=== PATIENT | female | born 2000 | race African-American/Black ===

== ENCOUNTER 2019-06-19 10:08 | Emergency (ER) | payer SELFPAY ==
[2019-06-19 10:47] LABS: ABSOLUTE BASOPHILS # (AUTO) 0.1 10^3/uL (0.0-0.2); ABSOLUTE EOSINOPHILS # (AUTO) 0.1 10^3/uL (0.0-0.6); ABSOLUTE MONOCYTES (AUTO) 0.3 10^3/uL (0.1-1.4); ABSOLUTE NEUT (AUTO) 5.3 10^3/uL (1.7-8.2); BASOPHILS % (AUTO) 0.9 % (0-2); EOSINOPHILS % (AUTO) 1.3 % (0-6); HEMOGLOBIN 11.1 g/dL (12.0-15.5); LYMPHOCYTES % (AUTO) 25.8 % (13-45); MEAN CORPUSCULAR HEMOGLOBIN 24.9 pg (27.0-33.4); MEAN CORPUSCULAR HGB CONC 32.5 g/dL (32.0-36.0); MEAN CORPUSCULAR VOLUME 77 fl (80-97); MONOCYTES % (AUTO) 4.2 % (3-13); RED BLOOD COUNT 4.43 10^6/uL (3.72-5.28); RED CELL DISTRIBUTION WIDTH 16.8 % (11.5-14.0); SEGMENTED NEUTROPHILS % (AUTO) 67.8 % (42-78); TOTAL CELLS COUNTED % (AUTO) 100 %; WHITE BLOOD COUNT 7.8 10^3/uL (4.0-10.5)
[2019-06-19] MEDS ORDERED: DIPHENHYDRAMINE HCL 25 MG CAPSULE PO ONE (10:53)
[2019-06-19] MEDS ORDERED: FAMOTIDINE 20 MG TABLET PO ONE (10:53)
--- NOTE | 2019-06-19 10:57 | ER Document Report ---
ED Allergic Reaction - General Chief Complaint: Allergic Reaction Stated Complaint: DIFFICULTY BREATHING Time Seen by Provider: 06/19/19 10:47 Mode of Arrival: Ambulatory Information source: Patient Notes: This 19-year-old female patient comes emergency room complaining of allergic reaction this morning. She said her throat was feeling tight, the roof of her mouth was itchy, her right face and right upper lip were swelling and itching. She took one Benadryl tablet about 9:30 AM. She is feeling better now but still has some of the symptoms. She does have a history of asthma and was concerned about her chest tightness. She has never had a reaction like this in the past. She is allergic to seafood and has seasonal allergies. TRAVEL OUTSIDE OF THE [place] IN LAST 30 DAYS: No - Related Data Allergies/Adverse Reactions: Seafood Allergy (Severe, Uncoded 06/19/19 10:50) Past Medical History - General Information source: Patient - Social History Smoking Status: Never Smoker Cigarette use (# per day): No Chew tobacco use (# tins/day): No Smoking Education Provided: No Frequency of alcohol use: None Drug Abuse: Marijuana - Occasionally Occupation: Works in the office of a [employer] Lives with: Family Family History: Reviewed & Not Pertinent Patient has suicidal ideation: No Patient has homicidal ideation: No Pulmonary Medical History: Reports: Hx Asthma Past Surgical History: Reports: None Review of Systems - Review of Systems Constitutional: No symptoms reported EENT: No symptoms reported Cardiovascular: No symptoms reported Respiratory: No symptoms reported Gastrointestinal: No symptoms reported Genitourinary: No symptoms reported Female Genitourinary: Last menstrual period - 05/27/2019, normal and on time Musculoskeletal: No symptoms reported Skin: No symptoms reported Hematologic/Lymphatic: No symptoms reported Neurological/Psychological: No symptoms reported Physical Exam - Vital signs Vitals: Temp Pulse Resp BP Pulse Ox 98 F 98 22 H 120/86 H 99 06/19/19 10:10 06/19/19 10:10 06/19/19 10:10 06/19/19 10:10 06/19/19 10:10 Interpretation: Normal - General General appearance: Appears well, Alert In distress: None - HEENT Head: Normocephalic, Atraumatic, Other - The right zygomatic region has a well demarcated slightly pale raised area that corresponds to where the patient resupported the swelling and itching earlier. Eyes: Normal Pupils: PERRL Mouth/Lips: Other - The right upper lip is a little bit swollen. Pharynx: Normal. No: Uvular edema Neck: Normal - Respiratory Respiratory status: No respiratory distress Breath sounds: Normal - Cardiovascular Rhythm: Regular Heart sounds: Normal auscultation Murmur: No - Abdominal Inspection: Morbidly Obese - Back Back: Normal - Extremities General upper extremity: Normal inspection General lower extremity: Normal inspection - Neurological Neuro grossly intact: Yes - Psychological Associated symptoms: Normal affect, Normal mood - Skin Skin Temperature: Warm Skin Moisture: Dry Skin Color: Normal Course - Re-evaluation Re-evalutation: 06/19/19 13:00 Patient is feeling better now. There is minimal swelling to the right upper lip. There is no itching. - Vital Signs Vital signs: Temp Pulse Resp BP Pulse Ox 98 F 98 11 L 127/77 H 100 06/19/19 10:10 06/19/19 10:10 06/19/19 11:03 06/19/19 11:03 06/19/19 11:03 - Laboratory Result Diagrams: 06/19/19 10:22 06/19/19 10:22 Laboratory results interpreted by me: 06/19/19 10:22 Hgb 11.1 L Hct 34.0 L MCV 77 L MCH 24.9 L RDW 16.8 H Plt Count 489 H Discharge - Discharge Clinical Impression: Urticaria Condition: Stable Disposition: HOME, SELF-CARE Additional Instructions: Acute Allergic Reaction Your symptoms are due to an allergic reaction. Allergy can cause hives, swelling of the hands, feet, and face, hoarseness, and difficulty swallowing or breathing. It may be due to exposure to medication, animal dander, foods, infection, or insect bites. Medication is a common cause, even when prior use of this same medication caused no problems. Acute treatment may include adrenalin and antihistamines. Usually, the specific allergic agent can't be identified unless repeated episodes occur. Home treatment includes the following: (1) Stop any suspicious medications. This will be discussed with you. (2) Oral antihistamines for the next four to five days. Example, dip henhydramine (Benadryl) every four hours. (3) You may also use cimetidine (Tagamet), ranitidine (Zantac), or famotidine (Pepcid) every four hours if diphenhydramine is not controlling itching and hiv es. (4) Avoid aspirin until the hives completely disappear. (5) Avoid hot bahs or showers until the hives are completely gone. Call the doctor if faintness, difficulty swallowing, tightness in the chest, or wheezing occurs.
[2019-06-19 11:04] LABS: ALBUMIN 4.1 g/dL (3.5-5.0); ALKALINE PHOSPHATASE 72 U/L (38-126); ANION GAP 9 (5-19); ASPARTATE AMINO TRANSFERASE 17 U/L (14-36); BILIRUBIN,DIRECT 0.1 mg/dL (0.0-0.4); BILIRUBIN,TOTAL 0.4 mg/dL (0.2-1.3); BLOOD UREA NITROGEN 9 mg/dL (7-20); CALCIUM 9.5 mg/dL (8.4-10.2); CARBON DIOXIDE 25 mmol/L (22-30); CHLORIDE 104 mmol/L (98-107); GLUCOSE 86 mg/dL (75-110); POTASSIUM 4.6 mmol/L (3.6-5.0); TOTAL PROTEIN 7.8 g/dL (6.3-8.2)
[2019-06-19 11:14] LABS: PLATELET COUNT 489 10^3/uL (150-450)
[2019-06-19 13:02] VITALS: BP 142/95
== END 2019-06-19 13:00 | disposition home or self-care (01) ==
LOC: ER 10:08
DX: L50.9 Urticaria, unspecified (principal); R09.89 Other specified symptoms and signs involving the circulatory and respiratory systems; J45.909 Unspecified asthma, uncomplicated; R07.89 Other chest pain; F12.10 Cannabis abuse, uncomplicated; Z91.013 Allergy to seafood
CPT/HCPCS: 36415; 80053; 85025; 99283

== ENCOUNTER 2019-07-17 17:06 | Emergency (ER) | payer OTHER ==
--- NOTE | 2019-07-17 18:10 | ER Document Report ---
HPI - HPI Time Seen by Provider: 07/17/19 18:04 Pain Level: 0 Notes: Patient is a 19-year-old female who presents to the ED complaining of nasal congestion/discharge, dry nonproductive cough, sore throat 2 days. Patient states that she is still eating and drinking without difficulties, but does have a decreased p.o. intake. She is still urinating normally having normal bowel movements. Patient has been using some [id number] meds for symptoms. She denies any significant past medical history including cardiopulmonary history and immunocompromised conditions. Patient denies any smoking. Denies any headache, neck pain, chest pain, palpitations, syncope, shortness of breath, wheeze, dyspnea, abdominal pain, nausea/vomiting/diarrhea, urinary retention, dysuria, hematuria, or rash. - ROS Systems Reviewed and Negative: Yes All other systems reviewed and negative - REPRODUCTIVE Reproductive: DENIES: : Past Medical History - Social History Smoking Status: Never Smoker Family History: Reviewed & Not Pertinent Patient has suicidal ideation: No Patient has homicidal ideation: No Pulmonary Medical History: Reports: Hx Asthma Vertical Provider Document - CONSTITUTIONAL Agree With Documented VS: Yes Notes: PHYSICAL EXAMINATION: GENERAL: Well-appearing, well-nourished and in no acute distress. A&Ox4. Ans wers questions appropriately. Moves comfortably w/o notable distress HEAD: Atraumatic, normocephalic. EYES: Pupils equal round and reactive to light, extraocular movements intact, sclera anicteric, conjunctiva are normal. ENT: EAC clear b/l. TM's intact b/l without erythema, fluid, or perforation. Nares patent and with clear discharge. oropharynx mild erythema without exudates. 1+ tonsilar hypertrophy with mild erythema no exudate. No palatine shift. Uvula midline. No tongue protrusion. No drooling, hoarseness, or airway compromise. Moist mucous membranes. No sinus tenderness. NECK: Normal range of motion, supple without lymphadenopathy. No rigidity/meningismus. LUNGS: Breath sounds clear to auscultation bilaterally and equal. No wheezes rales or rhonchi. No retractions HEART: Regular rate and rhythm without murmurs, rubs, gallops. ABDOMEN: Soft, nontender, nondistended abdomen. No guarding, no rebound. Normal bowel sounds present. No CVA tenderness bilaterally. NEUROLOGICAL: Normal speech, normal gait. PSYCH: Normal mood, normal affect. SKIN: Warm, Dry, normal turgor, no rashes or lesions noted. - INFECTION CONTROL TRAVEL OUTSIDE OF THE [place] IN LAST 30 DAYS: No Course - Re-evaluation Re-evalutation: 07/17/19 Patient is an afebrile, well-hydrated, 19-year-old female who presents to the emergency department with an acute URI/pharyngitis, suspect viral. Vitals are acceptable without significant tachycardia, tachypnea, or hypoxia. PE is o therwise unremarkable. She is nontoxic-appearing and is tolerating p.o. without difficulty. Lungs are clear to auscultation bilaterally. Rapid strep was negative with a throat culture pending. No further labs or imaging warranted at this time. Low suspicion for any meningitis, sepsis, peritonsillar/pharyngeal abscess, respiratory compromise, Fer's, pneumonia, or other emergent systemic condition at this time. Patient is aware this condition can change from initial presentation and she needs to monitor symptoms closely. Pt declined decadron. Conservative measures otherwise for symptoms. Recheck with your PCM in 2-3 days. Return to the ED with any worsening/concerning symptoms otherwise as reviewed in discharge. Patient is in agreement. - Vital Signs Vital signs: Temp Pulse Resp BP Pulse Ox 97.4 F 93 14 130/74 H 100 07/17/19 17:25 07/17/19 17:25 07/17/19 17:25 07/17/19 17:25 07/17/19 17:25 Discharge - Discharge Clinical Impression: Acute URI, Sore throat Condition: Stable Disposition: HOME, SELF-CARE Instructions: Upper Respiratory Illness ([facility]), Sore Throat ([facility]) Additional Instructions: Maintain adequate fluid intake Take meds as directed Salt water gargles, throat sprays, mouthwash rinse, peroxide gargles tylenol/ibuprofen as needed over the counter cold medication as needed for symptoms F/u: with your PCM in 2-3 days for a recheck Consider consult with ENT for ongoing/worsening symptoms Return to the ED with any fever, worsening pain, chest pain, neck pain/stiffness, shortness of breath, cough, drooling, trouble swallowi ng/breathing, abdominal pain, n/v/d, rash, or worsening/concerning symptoms otherwise. Forms: Elevated Blood Pressure Referrals: ADAN PHOENIX DO [ASSOCIATE] - Follow up as needed
[2019-07-17 19:49] VITALS: BP 121/63
== END 2019-07-17 19:20 | disposition home or self-care (01) ==
LOC: ER 17:06
DX: J06.9 Acute upper respiratory infection, unspecified (principal); J02.9 Acute pharyngitis, unspecified; R09.81 Nasal congestion; R05 Cough; J45.909 Unspecified asthma, uncomplicated; J35.1 Hypertrophy of tonsils
CPT/HCPCS: 87070; 87880; 99283

== ENCOUNTER 2019-11-01 10:16 | Emergency (ER) | payer BC ==
[2019-11-01] MEDS ORDERED: ONDANSETRON HCL INJ/PF 4 MG/2 ML SDV IV ONE (10:28)
--- NOTE | 2019-11-01 10:29 | ER Document Report ---
ED Medical Screen (RME) - General Chief Complaint: Nausea/Vomiting/Diarrhea Stated Complaint: DIARRHEA Time Seen by Provider: 11/01/19 10:25 Notes: HPI: 19-year-old female presenting to the emergency department complaining of vomiting and diarrhea since yesterday. Patient had upper respiratory symptoms a week ago. Patient began having some generalized abdominal discomfort, multiple episodes of diarrhea yesterday and today, had 3-4 episodes of vomiting yesterday 2 episodes of vomiting today. No definitive fever. I have greeted and performed a rapid initial assessment of this patient. A comprehensive ED assessment and evaluation of the patient, analysis of test results and completion of the medical decision making process will be conducted by additional ED providers PHYSICAL EXAMINATION: GENERAL: Well-appearing, well-nourished and in mild acute distress. HEAD: Atraumatic, normocephalic. EYES: sclera anicteric, conjunctiva are normal. ENT: Moist mucous membranes. NECK: Normal range of motion LUNGS: Normal work of breathing, clear to auscultation HEART: 2+ radial pulses bilaterally, regular rate and rhythm ABD: limited by positioning for exam in triage. Mild generalized discomfort on palpation EXTREMITIES: no pitting or edema. No cyanosis. NEUROLOGICAL: No focal neurological deficits. Moves all extremities spontaneously and on command. PSYCH: Normal mood, normal affect. SKIN: Warm, Dry, normal turgor, no rashes or lesions noted. TRAVEL OUTSIDE OF THE [place] IN LAST 30 DAYS: No - Related Data Allergies/Adverse Reactions: Seafood Allergy (Severe, Uncoded 11/01/19 10:23) Past Medical History - Social History Chew tobacco use (# tins/day): No Frequency of alcohol use: None Drug Abuse: None Pulmonary Medical History: Reports: Hx Asthma Physical Exam - Vital signs Vitals: Temp Pulse Resp BP Pulse Ox 97.8 F 81 20 141/85 H 98 11/01/19 10:20 11/01/19 10:20 11/01/19 10:20 11/01/19 10:20 11/01/19 10:20 Course - Vital Signs Vital signs: Temp Pulse Resp BP Pulse Ox 97.8 F 81 20 141/85 H 98 11/01/19 10:20 11/01/19 10:20 11/01/19 10:20 11/01/19 10:20 11/01/19 10:20
[2019-11-01 11:06] LABS: ABSOLUTE EOSINOPHILS # (AUTO) 0.1 10^3/uL (0.0-0.6); ABSOLUTE LYMPHOCYTES (AUTO) 1.9 10^3/uL (0.5-4.7); ABSOLUTE MONOCYTES (AUTO) 0.3 10^3/uL (0.1-1.4); ABSOLUTE NEUT (AUTO) 4.7 10^3/uL (1.7-8.2); BASOPHILS % (AUTO) 0.3 % (0-2); EOSINOPHILS % (AUTO) 1.1 % (0-6); HEMOGLOBIN 11.4 g/dL (12.0-15.5); LYMPHOCYTES % (AUTO) 27.6 % (13-45); MEAN CORPUSCULAR HEMOGLOBIN 25.5 pg (27.0-33.4); MEAN CORPUSCULAR HGB CONC 33.5 g/dL (32.0-36.0); MEAN CORPUSCULAR VOLUME 76 fl (80-97); MONOCYTES % (AUTO) 4.8 % (3-13); PLATELET COUNT 494 10^3/uL (150-450); RED BLOOD COUNT 4.46 10^6/uL (3.72-5.28); RED CELL DISTRIBUTION WIDTH 16.7 % (11.5-14.0); SEGMENTED NEUTROPHILS % (AUTO) 66.2 % (42-78); TOTAL CELLS COUNTED % (AUTO) 100 %
[2019-11-01 11:10] LABS: APPEARANCE,URINE CLEAR; BILIRUBIN,URINE NEGATIVE (NEGATIVE); COLOR,URINE YELLOW; GLUCOSE, URINE NEGATIVE (NEGATIVE); KETONES,URINE NEGATIVE (NEGATIVE); LEUKOCYTE ESTERASE,URINE NEGATIVE (NEGATIVE); NITRITE,URINE NEGATIVE (NEGATIVE); PROTEIN,URINE NEGATIVE (NEGATIVE); URINE SPECIFIC GRAVITY 1.018; UROBILINOGEN,URINE NEGATIVE mg/dL (<2.0)
[2019-11-01 11:24] LABS: ALBUMIN 4.3 g/dL (3.5-5.0); ALKALINE PHOSPHATASE 83 U/L (38-126); ANION GAP 9 (5-19); ASPARTATE AMINO TRANSFERASE 14 U/L (14-36); BILIRUBIN,TOTAL 0.3 mg/dL (0.2-1.3); BLOOD UREA NITROGEN 11 mg/dL (7-20); CALCIUM 9.4 mg/dL (8.4-10.2); CARBON DIOXIDE 26 mmol/L (22-30); CHLORIDE 104 mmol/L (98-107); GLUCOSE 84 mg/dL (75-110); POTASSIUM 4.9 mmol/L (3.6-5.0); TOTAL PROTEIN 7.8 g/dL (6.3-8.2)
--- NOTE | 2019-11-01 11:55 | ER Document Report ---
Entered by MISBAH GOMEZ SCRIBE 11/01/19 1043 Acting as scribe for:TYREE CASTANO MD ED GI/ - General Chief Complaint: Nausea/Vomiting/Diarrhea Stated Complaint: DIARRHEA Time Seen by Provider: 11/01/19 10:25 Notes: This 19 year old female patient presents to the emergency department today with complaints of a one and a half week history of nasal congestion and a sore throat. Patient also states she has had diarrhea and vomiting since yesterday. Patient states that she is "not too worried about the diarrhea because she always has diarrhea when her cycle starts". Patient reports that she would not have sought out treatment today had it not been for her boss at work sending her home, stating that there was a GI virus going around their work. Patient denies fevers. Patient states that her diarrhea has been a green color, denies seeing any blood in her stool or vomit. TRAVEL OUTSIDE OF THE [place] IN LAST 30 DAYS: No - Related Data Allergies/Adverse Reactions: Seafood Allergy (Severe, Uncoded 11/01/19 10:23) Past Medical History - Social History Smoking Status: Current Some Day Smoker Cigarette use (# per day): Yes Chew tobacco use (# tins/day): No Frequency of alcohol use: None Drug Abuse: None Family History: Reviewed & Not Pertinent Patient has suicidal ideation: No Patient has homicidal ideation: No Pulmonary Medical History: Reports: Hx Asthma Neurological Medical History: Reports: Other - Frequent headaches GI Medical History: Reports: Hx Gastroesophageal Reflux Disease Review of Systems - Review of Systems Constitutional: denies: Fever EENT: See HPI, Nose congestion, Throat pain Cardiovascular: No symptoms reported Respiratory: See HPI, Cough, Wheezing Gastrointestinal: See HPI, Diarrhea, Nausea, Vomiting. denies: Abdominal pain Genitourinary: No symptoms reported Female Genitourinary: See HPI, Last menstrual period - currently menstruating. denies: Musculoskeletal: No symptoms reported Skin: No symptoms reported Hematologic/Lymphatic: No symptoms reported Neurological/Psychological: No symptoms reported -: Yes All other systems reviewed and negative Physical Exam - Vital signs Vitals: Temp Pulse Resp BP Pulse Ox 97.8 F 81 20 141/85 H 98 11/01/19 10:20 11/01/19 10:20 11/01/19 10:20 11/01/19 10:20 11/01/19 10:20 - General General appearance: Appears well, Alert - HEENT Head: Normocephalic, Atraumatic Eyes: Normal Pupils: PERRL Notes: Posterior oropharynx erythema without hypertrophy, exudate, or lymphadenopathy. - Respiratory Respiratory status: No respiratory distress Chest status: Nontender Breath sounds: Normal Chest palpation: Normal - Cardiovascular Rhythm: Regular Heart sounds: Normal auscultation Murmur: No - Abdominal Inspection: Morbidly Obese Distension: No distension Bowel sounds: Normal Tenderness: Nontender - Extremities General upper extremity: Normal inspection, Nontender. No: Edema General lower extremity: Normal inspection, Nontender. No: Edema - Neurological Neuro grossly intact: Yes Cognition: Normal Orientation: AAOx4 [place] Coma Scale Eye Opening: Spontaneous [place] Coma Scale Verbal: Oriented [place] Coma Scale Motor: Obeys Commands [place] Coma Scale Total: 15 Speech: Normal - Psychological Associated symptoms: Normal affect, Normal mood - Skin Skin Temperature: Warm Skin Moisture: Dry Skin Color: Normal Course - Re-evaluation Re-evalutation: 11/01/19 11:49 Patient not showing any signs of cardiovascular distress at this time patient is ambulatory alert and vital signs are stable. Patient reports that her nausea and and vomiting was this morning and has not vomited since that time. Patient prefers not to have an IV at this time. Plan is to treat patient as with antibiotics for her pharyngitis and Zofran for her nausea and to keep up with her IV having her p.o. fluid intake in order to avoid dehydration. Patient will be given a work note for 2 days inasmuch as she has recurrent strep throat. Patient has a redness in the back of her throat at this time reminding her of strep throat in the past. - Vital Signs Vital signs: Temp Pulse Resp BP Pulse Ox 97.8 F 81 20 141/85 H 98 11/01/19 10:20 11/01/19 10:20 11/01/19 10:20 11/01/19 10:20 11/01/19 10:20 - Laboratory Result Diagrams: 11/01/19 10:30 11/01/19 10:30 Laboratory results interpreted by me: 11/01/19 11/01/19 11/01/19 10:30 10:30 10:30 Hgb 11.4 L Hct 34.0 L MCV 76 L MCH 25.5 L RDW 16.7 H Plt Count 494 H Lipase 19.2 L Urine Ascorbic Acid 20 H Discharge - Discharge Clinical Impression: Acute pharyngitis, Acute gastroenteritis Condition: Stable Disposition: HOME, SELF-CARE Instructions: Antinausea Medication ([facility]), Gastroenteritis (adult) (ON LICENSE OF [facility]) Additional Instructions: Sore Throat Sore throats may be caused by viruses, bacteria, or fungi. Most are due to a virus, and must get better on their own. Bacterial sore throats, particularly those due to "strep," need treatment with antibiotics. If an antibiotic is prescribed, be sure to take the medication for a full 10 days. Failure to take the antibiotic can result in complications such as rheumatic fever. Sometimes, an injection of antibiotics is given instead of pills or liquid. This single "shot" is equal in effectiveness to the oral medication. To relieve symptoms, take acetaminophen for pain. Sip clear liquids frequently, or eat popsicles or ice chips. Anesthetic sprays or lozenges may help. Make sure the air in the room is not too dry. Avoid using decongestants or antihistamines. Call the doctor if there is no improvement in two days, or if you have difficulty breathing, increasing throat pain, high fever, rash, or frequent vomiting. Prescriptions: Amoxicillin 1 tab PO TID #30 tab Ondansetron [Zofran Odt 4 mg Tablet] 1 - 2 tab PO Q4H PRN #15 tab.rapdis PRN Reason: For Nausea/Vomiting Forms: Return to Work I personally performed the services described in the documentation, reviewed and edited the documentation which was dictated to the scribe in my presence, and it accurately records my words and actions.
[2019-11-01 12:10] VITALS: BP 138/82
== END 2019-11-01 12:09 | disposition home or self-care (01) ==
LOC: ER 10:16
DX: J02.9 Acute pharyngitis, unspecified (principal); K52.9 Noninfective gastroenteritis and colitis, unspecified; R11.2 Nausea with vomiting, unspecified; E66.01 Morbid (severe) obesity due to excess calories; R09.81 Nasal congestion; F17.210 Nicotine dependence, cigarettes, uncomplicated; Z91.013 Allergy to seafood
CPT/HCPCS: 36415; 80053; 81001; 83690; 84703; 85025; 99284

== ENCOUNTER → 2019-11-18 | Outpatient (CLI) | payer SELFPAY ==
[2019-11-18 09:49] LABS: A TYPE INFLUENZA AG NEGATIVE (NEGATIVE); B INFLUENZA AG NEGATIVE (NEGATIVE)
== END ==
LOC: RDC 08:51
PROVIDERS: ATTEND Registered Nurse
DX: Z20.828 Contact with and (suspected) exposure to other viral communicable diseases (principal)
CPT/HCPCS: 87070; 87635; 87804; 87880

== ENCOUNTER 2020-03-28 14:45 | Emergency (ER) | payer SELFPAY ==
[2020-03-28 16:14] VITALS: BP 127/77
--- NOTE | 2020-03-28 16:33 | RADIOLOGY REPORT (SQ) ---
EXAM DESCRIPTION: CHEST SINGLE VIEW IMAGES COMPLETED DATE/TIME: 03/28/2020 4:17 pm REASON FOR STUDY: SOB COMPARISON: None. TECHNIQUE: Single frontal radiographic view of the chest acquired. NUMBER OF VIEWS: One view. LIMITATIONS: None. FINDINGS: LUNGS AND PLEURA: No pneumothorax. No consolidation or pleural effusion. MEDIASTINUM AND HILAR STRUCTURES: No contour abnormalities. HEART AND VASCULAR STRUCTURES: Heart normal size. BONES: No acute findings. HARDWARE: None in the chest. OTHER: No other significant finding. IMPRESSION: NO ACUTE FINDINGS. TECHNICAL DOCUMENTATION: JOB ID: [id number] [place]-72 2010 [employer]- All Rights Reserved Reading location - IP/workstation name: [email or web address]
[2020-03-28] MEDS ORDERED: ALBUTEROL SULFATE 0.083% NEB 2.5 MG/3 ML AMPUL NEB ONE (16:54)
--- NOTE | 2020-03-28 17:56 | ER Document Report ---
ED General - General Chief Complaint: Shortness Of Breath Stated Complaint: SHORTNESS OF BREATH Primary Care Provider: ABRAM COOK [NO LOCAL MD] - Follow up as needed Notes: 19-year-old female with past medical history of asthma and anxiety presenting today with chest tightness starting approximately 2 weeks ago. She has been in [place] for approximately 1 month. She has not been on her asthma medication for 2 years. States when she was in [place] she received an albuterol inhaler and a dose of oral steroid taper pack. She states that her grandma also 2 weeks ago and her symptoms started at her grandmothers . States that her chest tightness does not occur all the time. It comes and goes. States she became short of breath carrying a lot of groceries into the house. The albuterol inhaler provides some relief. Patient becomes emotional while discussing her grandmothers . States she has not had time to address her emotions. She denies any SI or HI. No fevers, chills, cough. TRAVEL OUTSIDE OF THE [place] IN LAST 30 DAYS: No - Related Data Allergies/Adverse Reactions: Seafood Allergy (Severe, Uncoded 11/01/19 10:23) Past Medical History - Social History Smoking Status: Never Smoker Chew tobacco use (# tins/day): No Frequency of alcohol use: Occasional Drug Abuse: None Family History: Reviewed & Not Pertinent Pulmonary Medical History: Reports: Hx Asthma GI Medical History: Reports: Hx Gastroesophageal Reflux Disease Review of Systems - Review of Systems Constitutional: No symptoms reported EENT: No symptoms reported Cardiovascular: No symptoms reported Respiratory: See HPI Gastrointestinal: No symptoms reported Genitourinary: No symptoms reported Female Genitourinary: No symptoms reported Musculoskeletal: No symptoms reported Skin: No symptoms reported Hematologic/Lymphatic: No symptoms reported Neurological/Psychological: No symptoms reported Physical Exam - Vital signs Vitals: Temp Pulse Resp BP Pulse Ox 99.1 F 83 19 127/77 H 100 03/28/20 16:13 03/28/20 16:13 03/28/20 16:13 03/28/20 16:13 03/28/20 16:13 Interpretation: Normal - Notes Notes: Adult General: GENERAL: Alert, interacts well. No acute distress HEAD: Normocephalic, atraumatic EYES: Pupils equal, round and reactive to light. Extraocular movements intact. ENT: Airway patent. Nares patent. NECK: Full range of motion. Supple. Trachea midline. No lymphadenopathy. LUNGS: Clear to auscultation bilaterally, no wheezes, rales, or rhonchi. No respiratory distress. Nontender chest wall. HEART: Regular rate and rhythm. No murmurs, rubs or gallops. ABDOMEN: Soft, nontender. Nondistended. (-) [place] sign. Bowel sounds present in all 4 quadrants. No rebound, guarding or masses. GENITOURINARY: Deferred EXTREMITIES: Moves all 4 extremities spontaneously. BACK: No cervical, thoracic, lumbar midline tenderness. Moves all extremities with full range of motion. NEUROLOGICAL: Alert and oriented x3. Normal speech. Strength 5/ 5 in all extremities. PSYCH: Normal affect, normal mood. SKIN: Warm, dry, normal turgor. No rashes or lesions noted. Course - Re-evaluation Re-evalutation: 03/28/20 23:49 Patients vitals are normal. Chest xray is unremarkable. I did discuss with patient testing for covid as she has had recent travel to [place]. Patient does not desire to have testing performed. Albuterol nebulizer was ordered. Patient reports no additional chest tightness after nebulizer treatment. With an unremarkable physical exam and workup and improvement after treatment, I am comfortable sending the patient home. I have treated her for asthma. I discussed with patient the need to follow up with a primary care provider for asthma and anxiety. I recommend she continues to use the albuterol inhlaer and finish the steroid pack. I discussed that she is to return to the emergency department for worsening symptoms or the development of new symptoms. Patient acknowledges and verbalizes understanding of instrution and plan. All questions answered. - Vital Signs Vital signs: Temp Pulse Resp BP Pulse Ox 99.1 F 83 16 127/77 H 100 03/28/20 18:32 03/28/20 18:32 03/28/20 18:32 03/28/20 18:32 03/28/20 18:32 Discharge - Discharge Clinical Impression: Asthma Qualifiers: Asthma severity: unspecified severity Asthma persistence: unspecified Asthma complication type: unspecified Qualified Code(s): J45.909 - Unspecified asthma, uncomplicated Condition: Stable Disposition: HOME, SELF-CARE Instructions: Asthma ([facility]) Additional Instructions: I suspect her symptoms are due to your asthma. I recommend you follow-up with your primary care provider. Continue take the albuterol inhaler that you are prescribed a fissure steroid Dosepak. Please return the emergency department if you have worsening symptoms or development of new symptoms. Please also get care for your anxiety. Referrals: JOYCE,NO [NO LOCAL MD] - Follow up as needed
== END 2020-03-28 18:15 | disposition home or self-care (01) ==
LOC: ER 14:45
DX: J45.909 Unspecified asthma, uncomplicated (principal); R07.89 Other chest pain; R06.02 Shortness of breath; Z63.4 Disappearance and death of family member; Z91.013 Allergy to seafood
CPT/HCPCS: 71045; 94640; 99284

== ENCOUNTER 2020-06-03 15:59 | Emergency (ER) | payer SELFPAY ==
[2020-06-03 16:18] VITALS: BP 138/82
--- NOTE | 2020-06-03 16:35 | ER Document Report ---
ED Medical Screen (RME) - General Chief Complaint: Abdominal Problem Stated Complaint: FINGERTIPS TINGLING,BACK PAIN Time Seen by Provider: 06/03/20 16:27 Mode of Arrival: Ambulatory Information source: Patient Notes: 20-year-old female presents to ED for complaint of numbness and tingling to the abdomen and back pain. She states she has been very tired week and fatigued for the last week. She states she does not know why she been tired and weak. She states her menstrual cycle did start today. She states she has had no respiratory symptoms. She states she does not have any history of surgeries. He does not smoke drink or use any illicit drugs. She is alert oriented I have greeted and performed a rapid initial assessment of this patient. A comprehensive ED assessment and evaluation of the patient, analysis of test results and completion of medical decision making process will be conducted by an additional ED providers. TRAVEL OUTSIDE OF THE [place] IN LAST 30 DAYS: No - Related Data Allergies/Adverse Reactions: Seafood Allergy (Severe, Uncoded 11/01/19 10:23) Past Medical History Pulmonary Medical History: Reports: Hx Asthma GI Medical History: Reports: Hx Gastroesophageal Reflux Disease Physical Exam - Vital signs Vitals: Temp Pulse Resp BP Pulse Ox 98.5 F 84 16 138/82 H 99 06/03/20 16:17 06/03/20 16:17 06/03/20 16:17 06/03/20 16:17 06/03/20 16:17 Course - Vital Signs Vital signs: Temp Pulse Resp BP Pulse Ox 98.5 F 84 16 138/82 H 99 06/03/20 16:17 06/03/20 16:17 06/03/20 16:17 06/03/20 16:17 06/03/20 16:17
--- NOTE | 2020-06-03 17:26 | RADIOLOGY REPORT (SQ) ---
EXAM DESCRIPTION: CHEST SINGLE VIEW IMAGES COMPLETED DATE/TIME: 06/03/2020 4:55 pm REASON FOR STUDY: numbness tingling to back COMPARISON: 03/28/2020 TECHNIQUE: Single frontal radiographic view of the chest acquired. NUMBER OF VIEWS: One view. LIMITATIONS: None. FINDINGS: LUNGS AND PLEURA: No pneumothorax. No consolidation or pleural effusion. MEDIASTINUM AND HILAR STRUCTURES: Stable. HEART AND VASCULAR STRUCTURES: Stable. BONES: No acute findings. HARDWARE: None in the chest. OTHER: No other significant finding. IMPRESSION: NO ACUTE FINDINGS. TECHNICAL DOCUMENTATION: JOB ID: [id number] [place]-72 2010 [employer]- All Rights Reserved Reading location - IP/workstation name: [employer]
--- NOTE | 2020-06-03 17:30 | ER Document Report ---
ED General - General Chief Complaint: Abdominal Problem Stated Complaint: FINGERTIPS TINGLING,BACK PAIN Time Seen by Provider: 06/03/20 16:27 Mode of Arrival: Ambulatory Notes: Patient is a 20-year-old -[place] female with a history of obesity and asthma who presents the emergency department with chief complaint of numbness and tingling in the bilateral fingertips and abdominal wall that began a couple weeks ago. The patient reports about 2 months ago she went to her grandmother's house and subsequently found her grandmother in the home. She states she is been suffering with depression and anxiety since that time. She is having lots of crying spells. She does add that she had a history of anemia previously in [place] but does not take any medicines for that. She reports that she started her menstrual cycle this morning and felt fatigued, having cramping discomfort and states that this is typical for her menstrual cycles, nothing out of the ordinary. She states her primary reason for visit today is the numbness and tingling in the fingertips and abdomen. She denies smoking, drugs or alcohol. No recent travel or known sick contacts. No vomiting or diarrhea. No headaches or visual disturbances. No dizziness or neck pain. No chest pain or shortness of breath. TRAVEL OUTSIDE OF THE [place] IN LAST 30 DAYS: No - Related Data Allergies/Adverse Reactions: Seafood Allergy (Severe, Uncoded 11/01/19 10:23) Past Medical History - General Information source: Patient - Social History Smoking Status: Never Smoker Family History: Reviewed & Not Pertinent Pulmonary Medical History: Reports: Hx Asthma GI Medical History: Reports: Hx Gastroesophageal Reflux Disease Review of Systems - Review of Systems Constitutional: denies: Fever EENT: denies: Throat pain Cardiovascular: denies: Chest pain Respiratory: denies: Cough Gastrointestinal: denies: Abdominal pain Genitourinary: denies: Pain Female Genitourinary: denies: Musculoskeletal: denies: Deformity Skin: denies: Change in color Hematologic/Lymphatic: denies: Easy bruising Neurological/Psychological: Numbness Physical Exam - Vital signs Vitals: Temp Pulse Resp BP Pulse Ox 98.5 F 84 16 138/82 H 99 06/03/20 16:17 06/03/20 16:17 06/03/20 16:17 06/03/20 16:17 06/03/20 16:17 - General General appearance: Appears well, Alert In distress: None - HEENT Head: Normocephalic, Atraumatic Eyes: Normal Conjunctiva: Normal Extraocular movements intact: Yes Eyelashes: Normal Pupils: PERRL - Respiratory Respiratory status: No respiratory distress Chest status: Nontender Breath sounds: Normal Chest palpation: Normal - Cardiovascular Rhythm: Regular Heart sounds: Normal auscultation - Abdominal Inspection: Normal Distension: No distension Bowel sounds: Normal Tenderness: Nontender Organomegaly: No organomegaly - Extremities General upper extremity: Normal inspection, Nontender, Normal color, Normal ROM, Normal temperature General lower extremity: Normal inspection, Nontender, Normal color, Normal ROM, Normal temperature, Normal weight bearing. No: Monty's sign - Neurological Neuro grossly intact: Yes Cognition: Normal Orientation: AAOx4 [place] Coma Scale Eye Opening: Spontaneous Bari Coma Scale Verbal: Oriented [place] Coma Scale Motor: Obeys Commands Bari Coma Scale Total: 15 Speech: Normal Cranial nerves: Normal Cerebellar coordination: Normal Motor strength normal: LUE, RUE, LLE, RLE Additional motor exam normals: Equal grid maker Sensory: Normal Notes: Normal sensation of the abdominal wall and the fingers of the bilateral hands to soft and sharp touch. Normal two-point discrimination. - Psychological Associated symptoms: Other - Baseline normal affect however becomes tearful with discussions of her grandmother - Skin Skin Temperature: Warm Skin Moisture: Dry Skin Color: Normal Course - Re-evaluation Re-evalutation: 06/03/20 17:29 Suspect anxiety because of these physical neuropathies. Will obtain blood work and hCG to rule out any possible anemia or other processes. 06/03/20 18:31 Patient states she does not wish to wait for blood work. Discussed with her other etiologies possible and the need to rule out things such as anemia in . She states that she does not wish to wait for lab work at this time. She states that she will follow-up outpatient for blood work she is going to call her therapist she had previously to try to work through some "issues". She is of sound mind at the capacity to make informed decision. She is aware that she is free to return here at any time to continue her care. She will call her old PCP to discuss her previous most hemoglobin levels. I advised that she follow-up as soon as possible with a medical provider here, will refer to [facility] for blood work. Advise she return here or any ER im mediately with any new, persistent or worsening symptoms. She verbalized understood and agreed. - Vital Signs Vital signs: Temp Pulse Resp BP Pulse Ox 98.5 F 84 16 138/82 H 99 06/03/20 16:17 06/03/20 16:17 06/03/20 16:17 06/03/20 16:17 06/03/20 16:17 - Laboratory Laboratory results interpreted by me: 06/03/20 17:00 Urine Protein 100 H Urine Ketones TRACE H Urine Blood LARGE H Leukocyte Esterase Rfl TRACE H Discharge - Discharge Clinical Impression: Anxiety, Numbness and tingling Condition: Stable Disposition: HOME, SELF-CARE Instructions: Anxiety ([facility]) Additional Instructions: Follow-up with your regular doctor in 2 to 3 days for reevaluation. Return here or any ER immediately with any new, persistent or worsening symptoms. [facility]errals: [facility] [NO LOCAL MD] - Follow up as needed
[2020-06-03 17:34] LABS: APPEARANCE,URINE SLIGHTLY-CLOUDY; BILIRUBIN,URINE NEGATIVE (NEGATIVE); COLOR,URINE RED; GLUCOSE, URINE NEGATIVE (NEGATIVE); KETONES,URINE TRACE mg/dL (NEGATIVE); PROTEIN,URINE 100 mg/dL (NEGATIVE); URINE SPECIFIC GRAVITY 1.021; UROBILINOGEN,URINE NEGATIVE mg/dL (<2.0)
== END 2020-06-03 19:01 | disposition home or self-care (01) ==
LOC: ER 15:59
DX: F41.9 Anxiety disorder, unspecified (principal); R20.2 Paresthesia of skin; R20.0 Anesthesia of skin; J45.909 Unspecified asthma, uncomplicated; Z63.4 Disappearance and death of family member; Z91.013 Allergy to seafood
CPT/HCPCS: 71045; 81001; 99284

== ENCOUNTER 2020-07-16 08:48 | Emergency (ER) | payer SELFPAY ==
[2020-07-16 08:59] VITALS: BP 131/67
--- NOTE | 2020-07-16 09:11 | ER Document Report ---
ED General - General Chief Complaint: Chest Pain Stated Complaint: CHEST PAIN Time Seen by Provider: 07/16/20 09:05 Notes: 20-year-old female presents with left-sided chest pain intermittent worse at night "when my anxiety gets bad" with some left arm soreness. Nonpleuritic no shortness of breath no cough hemoptysis no leg swelling no recent surgery no smoking. History of severe anxiety switching from 1 SSRI to the other, had about a week without SSRI at all due to delayed prescription feeling and has only been on her fluoxetine for 4 days. TRAVEL OUTSIDE OF THE [place] IN LAST 30 DAYS: No - Related Data Allergies/Adverse Reactions: Seafood Allergy (Severe, Uncoded 11/01/19 10:23) Past Medical History - Social History Smoking Status: Never Smoker Frequency of alcohol use: Occasional Drug Abuse: None Family History: Reviewed & Not Pertinent Pulmonary Medical History: Reports: Hx Asthma GI Medical History: Reports: Hx Gastroesophageal Reflux Disease Review of Systems - Review of Systems Notes: REVIEW OF SYSTEMS GEN: Denies fever, chills, weight loss ENT: Denies sore throat, nasal discharge, ear pain EYES: Denies blurry vision, eye pain, discharge CV: Pain RESP: Denies cough, shortness of breath, wheezing GI: Denies abdominal pain, nausea, vomiting, diarrhea MSK: Denies joint pain/swelling, edema, SKIN: Denies rash, skin lesions LYMPH: Denies swollen glands/lymph nodes NEURO: Denies headache, focal weakness or numbness, dizziness PSYCH: Denies depression, suicidal or homicidal ideation PHYSICAL EXAMINATION General: No acute distress, well-nourished Head: Atraumatic, normocephalic ENT: Mouth normal, oropharynx moist, no exudates or tonsillar enlargement Eyes: Conjunctiva normal, pupils equal, lids normal Neck: No JVD, supple, no guarding CVS: Normal rate, regular rhythm, no murmurs Resp: No resp distress, equal and normal breath sounds bilaterally GI: Nondistended, soft, no tenderness to palpation, no rebound or guarding Ext: No deformities, no edema, normal range of motion in upper and lower ext Back: No CVA or midline TTP Skin: No rash, warm Lymphatic: No lymphadeopathy noted Neuro: Awake, alert. Face symmetric. GCS 15. Psychiatric: Tearful anxious tapping foot on the floor Physical Exam - Vital signs Vitals: Temp Pulse Resp BP Pulse Ox 98.0 F 92 18 131/67 H 97 07/16/20 08:59 07/16/20 08:59 07/16/20 08:59 07/16/20 08:59 07/16/20 08:59 Course - Re-evaluation Re-evalutation: 07/16/20 09:10 Innocent sounding chest pain in a young female with no cardiac history no risk factors for DVT, an alternative explanation: Transitioning between anxiety medicine. Patient is quite anxious in the ED. After history and physical and EKG do not think she requires further work-up for PE ACS pneumothorax etc. I offered her meds in the ED and she refused. She will follow-up with her primary care I have discussed with the patient there likely diagnosis, aftercare plan, follow-up plans and my usual and customary return precautions. They verbalized understanding of this. - Vital Signs Vital signs: Temp Pulse Resp BP Pulse Ox 98.0 F 92 18 131/67 H 97 07/16/20 08:59 07/16/20 08:59 07/16/20 08:59 07/16/20 08:59 07/16/20 08:59 - EKG Interpretation by Me EKG shows normal: Sinus rhythm Rate: Normal, Tachycardia Rhythm: NSR When compared to previous EKG there are: Previous EKG unavailable - Normal intervals No ST depression No ST elevation No T wave changes Discharge - Discharge Clinical Impression: Chest pain, unspecified Qualifiers: Chest pain type: unspecified Qualified Code(s): R07.9 - Chest pain, unspecified Condition: Good Disposition: HOME, SELF-CARE Instructions: Chest Pain of Unclear Cause ([facility]), Anxiety ([facility])
--- NOTE | 2020-07-16 13:26 | EKG REPORT ---
SEVERITY:- BORDERLINE ECG - SINUS RHYTHM BORDERLINE T ABNORMALITIES, DIFFUSE LEADS : Confirmed by: Nelly Ware MD 16-Jul-2020 13:25:51
== END 2020-07-16 09:12 | disposition home or self-care (01) ==
LOC: ER 08:48
DX: R07.9 Chest pain, unspecified (principal); M79.602 Pain in left arm
CPT/HCPCS: 93005; 93010; 99283

== ENCOUNTER 2020-08-29 10:53 | Emergency (ER) | payer SELFPAY ==
--- NOTE | 2020-08-29 11:36 | ER Document Report ---
ED Medical Screen (RME) - General Chief Complaint: Numbness Stated Complaint: NUMBNESS TRAVEL OUTSIDE OF THE [place] IN LAST 30 DAYS: No - HPI Notes: 08/29/20 11:31 Rapid Medical Exam HPI: PT is a 20yo female c/o numbness/tingling to bilat hands/feet and abdom area. was seen in the ED a few months ago for bilat hand numbness and was told it was related to anxiety. denies extermity weakness, speech changes, CHIANG, or other focal neuro deficits. denies diet changes, n/v/d, cp, sob, dysuria. Pt says sx's worsened 2 weeks ago after be inseminated to try an get . says shes had multiple neg preg tests. Physical Exam: GENERAL: Well-appearing, well-nourished and in no acute distress. HEAD: Atraumatic, normocephalic. ENT: Moist mucous membranes. RESP: Respirations even and unlabored CV- Regular rate. NEURO: No focal neurological deficits. Moves all extremities spontaneously and on command. My involvement in this patients care was limited to a rapid initial assessment. A comprehensive ED assessment and evaluation of the patient, analysis of test results, treatment, and completion of the medical decision making process will be performed by other ER providers. - Related Data Allergies/Adverse Reactions: iodine Allergy (Verified 08/29/20 11:25) Seafood Allergy (Severe, Uncoded 08/29/20 11:25) Past Medical History Pulmonary Medical History: Reports: Hx Asthma GI Medical History: Reports: Hx Gastroesophageal Reflux Disease Physical Exam - Vital signs Vitals: Temp Pulse Resp BP Pulse Ox 99.4 F 92 20 131/75 H 98 08/29/20 11:04 08/29/20 11:04 08/29/20 11:04 08/29/20 11:04 08/29/20 11:04 Course - Vital Signs Vital signs: Temp Pulse Resp BP Pulse Ox 99.4 F 92 20 131/75 H 98 08/29/20 11:04 08/29/20 11:04 08/29/20 11:04 08/29/20 11:04 08/29/20 11:04
[2020-08-29 12:28] LABS: AMORPHOUS SEDIMENT,URINE TRACE /HPF; APPEARANCE,URINE CLEAR; BILIRUBIN,URINE NEGATIVE (NEGATIVE); COLOR,URINE AMBER; GLUCOSE, URINE NEGATIVE (NEGATIVE); KETONES,URINE NEGATIVE (NEGATIVE); LEUKOCYTE ESTERASE,URINE LARGE (NEGATIVE); NITRITE,URINE NEGATIVE (NEGATIVE); PROTEIN,URINE 30 mg/dL (NEGATIVE); URINE SPECIFIC GRAVITY 1.028
[2020-08-29 12:36] LABS: ABSOLUTE EOSINOPHILS # (AUTO) 0.2 10^3/uL (0.0-0.6); ABSOLUTE LYMPHOCYTES (AUTO) 2.3 10^3/uL (0.5-4.7); ABSOLUTE MONOCYTES (AUTO) 0.4 10^3/uL (0.1-1.4); ABSOLUTE NEUT (AUTO) 5.4 10^3/uL (1.7-8.2); BASOPHILS % (AUTO) 0.4 % (0-2); EOSINOPHILS % (AUTO) 2.2 % (0-6); HEMATOCRIT 34.7 % (36.0-47.0); HEMOGLOBIN 11.7 g/dL (12.0-15.5); LYMPHOCYTES % (AUTO) 27.7 % (13-45); MEAN CORPUSCULAR HGB CONC 33.6 g/dL (32.0-36.0); MEAN CORPUSCULAR VOLUME 77 fl (80-97); MONOCYTES % (AUTO) 5.2 % (3-13); PLATELET COUNT 457 10^3/uL (150-450); RED BLOOD COUNT 4.48 10^6/uL (3.72-5.28); RED CELL DISTRIBUTION WIDTH 17.3 % (11.5-14.0); SEGMENTED NEUTROPHILS % (AUTO) 64.5 % (42-78); TOTAL CELLS COUNTED % (AUTO) 100 %; WHITE BLOOD COUNT 8.3 10^3/uL (4.0-10.5)
[2020-08-29 12:50] LABS: ALBUMIN 4.1 g/dL (3.5-5.0); ALKALINE PHOSPHATASE 78 U/L (38-126); ANION GAP 6 (5-19); ASPARTATE AMINO TRANSFERASE 14 U/L (14-36); BILIRUBIN,DIRECT 0.1 mg/dL (0.0-0.4); BILIRUBIN,TOTAL 0.5 mg/dL (0.2-1.3); BLOOD UREA NITROGEN 8 mg/dL (7-20); CALCIUM 9.5 mg/dL (8.4-10.2); CARBON DIOXIDE 26 mmol/L (22-30); CHLORIDE 105 mmol/L (98-107); GLUCOSE 121 mg/dL (75-110); POTASSIUM 4.2 mmol/L (3.6-5.0); TOTAL PROTEIN 7.6 g/dL (6.3-8.2)
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
[2020-08-29 14:09] VITALS: BP 128/74
== END 2020-08-29 14:10 | disposition home or self-care (01) ==
LOC: ER 10:53
DX: R20.2 Paresthesia of skin (principal); E66.9 Obesity, unspecified
CPT/HCPCS: 36415; 80053; 81001; 81025; 85025; 99283